=== PATIENT | female | born 1985 | race Two or more races ===

== ENCOUNTER 2022-03-12 06:46 | Inpatient (IN) ==
[2022-03-12] MEDS ORDERED: ANCEF VIAL 1 GRAM ONE (06:59)
[2022-03-12] MEDS ORDERED: ZOFRAN INJ 4 MG VIAL ONE (06:59)
[2022-03-12] MEDS ORDERED: NS 100 ML IV 200 ML ONE (06:59)
[2022-03-12] MEDS ORDERED: LR 1,000 ML IV 2,000 ML IV ONE (06:59)
[2022-03-12] MEDS ORDERED: REGLAN INJ 10 MG VIAL ONE (06:59)
[2022-03-12] MEDS ORDERED: PEPCID 20 MG VIAL ONE (07:00)
[2022-03-12] MEDS ORDERED: PRECEDEX INJ VIAL IVP ONE (07:04)
[2022-03-12] MEDS ORDERED: MARCAINE SPINAL ONE (07:04)
[2022-03-12] MEDS ORDERED: DILAUDID INJ ONE (07:05)
[2022-03-12] MEDS ORDERED: XYLOCAINE 2 % (PLAIN) ONE (07:05)
[2022-03-12] MEDS ORDERED: ANCEF VIAL 1 GRAM IVP ONE (07:05)
[2022-03-12] MEDS ORDERED: REGLAN INJ 10 MG VIAL IVP PRN (07:09)
[2022-03-12] MEDS ORDERED: ZOFRAN INJ 4 MG VIAL IVP ONE (07:10)
[2022-03-12] MEDS ORDERED: PEPCID 20 MG VIAL IVP ONE (07:10)
[2022-03-12] MEDS ORDERED: LR 1,000 ML IV 1,000 ML IV ONE ×2 (07:11→08:41)
[2022-03-12] MEDS: D5 1/2 NS 1,000 ML 1,000 ML IV SCH ×2 (07:25→10:49)
[2022-03-12 07:34] LABS: BILIRUBIN,URINE NEGATIVE (NEGATIVE); BLOOD/HEMOGLOBIN,URINE 2+ (NEGATIVE); GLUCOSE, URINE NEGATIVE (NEGATIVE); KETONES,URINE 1+ (NEGATIVE); LEUKOCYTE ESTERASE ,URINE 1+ (NEGATIVE); NITRITES,URINE NEGATIVE (NEGATIVE); PH,URINE 6.5 (5.0 - 8.0); PROTEIN,URINE 2+ (NEGATIVE); UROBILINOGEN,URINE NORMAL (NORMAL)
[2022-03-12 07:44] LABS: APPEARANCE,URINE SLIGHTLY HAZY (CLEAR); BACTERIA,URINE TRACE /HPF (NEGATIVE); COLOR,URINE YELLOW (YELLOW); RBC,URINE 0-2 /HPF (0-3); SQUAMOUS EPITHELIAL CELL,UR FEW /HPF (NEGATIVE)
[2022-03-12 07:45] LABS: HYALINE CASTS, URINE FEW /LPF (NEGATIVE)
[2022-03-12 07:46] LABS: BASOPHILS % (AUTO) 0.5 % (0.2-1.0); EOSINOPHILS # (AUTO) 0.1 x10^3/uL (0.0-0.2); HEMATOCRIT 32.3 % (36.0-47.0); HEMOGLOBIN 10.6 g/dL (12.0-16.0); LYMPHOCYTES # (AUTO) 2.1 X10^3/uL (1.3-2.9); LYMPHOCYTES % (AUTO) 32.2 % (21.0-51.0); MEAN CORPUSCULAR HEMOGLOBIN 26.4 pg (27.0-34.0); MEAN CORPUSCULAR HGB CONC 32.8 g/dL (33.0-35.0); MEAN CORPUSCULAR VOLUME 80.6 fL (80.0-100.0); MEAN PLATELET VOLUME 10.9 fL (7.4-11.0); MONOCYTES # (AUTO) 0.4 x10^3/uL (0.3-0.8); MONOCYTES % (AUTO) 6.1 % (0.0-13.0); NEUTROPHILS % (AUTO) 60.2 % (42.0-75.0); RED BLOOD COUNT 4.01 X10^6/uL (3.5-5.4); WHITE BLOOD COUNT 6.6 X10^3/uL (3.6-10.0)
[2022-03-12 07:56] LABS: BLOOD UREA NITROGEN 6 mg/dL (7-18); CALCIUM 8.6 mg/dL (8.5-10.1); CARBON DIOXIDE 23.2 mmol/L (21-32); CHLORIDE 103 mmol/L (98-107); CREATININE 0.54 mg/dL (0.55-1.02); SODIUM 135 mmol/L (136-145); eGFR NON BLACK RACES > 60 (>60)
[2022-03-12] MEDS ORDERED: STERILE WATER IRRIGATION IR ONE (08:31)
[2022-03-12] MEDS ORDERED: NEO-SYNEPHRINE INJ ONE (08:39)
[2022-03-12] MEDS ORDERED: ROBINUL ONE (08:39)
[2022-03-12] MEDS ORDERED: PITOCIN ONE (08:41)
[2022-03-12] MEDS ORDERED: DILAUDID INJ IVP PRN (09:44)
[2022-03-12] MEDS ORDERED: PHENERGAN INJ 25 MG IM PRN (09:44)
[2022-03-12] MEDS ORDERED: BARHEMSYS INJ IVP PRN (09:44)
[2022-03-12] MEDS ORDERED: BENADRYL INJ 50 MG VIAL IVP PRN ×2 (09:44→09:45)
[2022-03-12] MEDS ORDERED: ZOFRAN INJ 4 MG VIAL IVP PRN ×2 (09:44→09:45)
[2022-03-12] MEDS ORDERED: NARCAN INJ IVP PRN (09:45)
[2022-03-12] MEDS ORDERED: PERCOCET TAB 5/325 MG PO PRN (09:45)
[2022-03-12] MEDS ORDERED: TORADOL 30 MG VIAL IVP PRN (09:45)
[2022-03-13] MEDS: D5 1/2 NS 1,000 ML 1,000 ML IV SCH ×3 (00:02→07:13)
[2022-03-13 05:08] LABS: HEMOGLOBIN 8.2 g/dL (12.0-16.0)
[2022-03-13] MEDS ORDERED: NS 100 ML IV 100 ML with VENOFER 400 MG IV NR ×2 (09:39)
[2022-03-13] MEDS: LR 1,000 ML IV 1,000 ML IV SCH ×2 (10:14→17:02)
[2022-03-13] MEDS: PERCOCET TAB 5/325 MG PO PRN ×2 (15:18→22:13)
[2022-03-14] MEDS: LR 1,000 ML IV 1,000 ML IV SCH (01:15)
[2022-03-14] MEDS: PERCOCET TAB 5/325 MG PO PRN ×2 (04:15→11:25)
[2022-03-14] MEDS ORDERED: NS 100 ML IV 100 ML with VENOFER 400 MG IV NR ×2 (07:00)
[2022-03-14 08:26] VITALS: BP 120/73
== END 2022-03-14 11:45 | disposition home or self-care (01) | DRG 788 ==
LOC: LD 06:46 → MED/SURG 09:43
PROVIDERS: ADMIT Obstetrics & Gynecology Obstetrics; ATTEND Obstetrics & Gynecology Obstetrics
DX: Z3A.39 39 weeks gestation of pregnancy; Z37.0 Single live birth; N85.8 Other specified noninflammatory disorders of uterus; O24.419 Gestational diabetes mellitus in pregnancy, unspecified control; Z20.822 Contact with and (suspected) exposure to COVID-19; O34.211 Maternal care for low transverse scar from previous cesarean delivery